=== PATIENT | male | born 1995 | race Hispanic/Latino ===

== ENCOUNTER 2018-04-03 04:49 | Emergency (ER) | payer SELFPAY ==
[2018-04-03] MEDS ORDERED: Sodium Chloride 0.9% 1,000 ML ONE ×2 (05:11→06:05)
[2018-04-03] MEDS ORDERED: Ondansetron HCl/PF 4 MG/2 ML Vial ONE (05:11)
[2018-04-03 05:24] LABS: #Basophils 0.1 thou/uL (0.0-0.2); #Lymphocytes 1.5 thou/uL (1.20-3.40); #Monocytes 1.2 thou/uL (0.11-0.59); #Neutrophils 11.4 thou/uL (1.40-6.50); %Basophils 0.6 % (0.0-1.0); %Eosinophils 0.1 % (0.0-10.0); %Lymphocytes 10.4 % (21.0-51.0); %Monocytes 8.4 % (0.0-10.0); %Neutrophils 80.5 % (42.0-75.0); Hemoglobin 15.3 g/dL (14.0-18.0); Mean Corpuscular HGB CONC 32.8 g/dL (32.0-36.0); Mean Corpuscular Hemoglobin 28.1 pg (27.0-31.0); Mean Corpuscular Volume 85.4 fL (78.0-98.0); Mean Platelet Volume 7.7 fL (7.4-10.4); Platelet Count 280 thou/uL (130-400); Red Blood Cell (RBC) Count 5.44 mill/uL (4.70-6.10); White Blood Cell (WBC) Count 14.2 thou/uL (4.8-10.8)
[2018-04-03 05:27] LABS: MDiff Complete? YES; Manual Diff?? NO
[2018-04-03] MEDS ORDERED: Ketorolac Tromethamine 30 MG/ML VIAL ONE (05:34)
[2018-04-03 05:41] LABS: ALT (SGPT) 31 U/L (8-55); AST (SGOT) 23 U/L (5-34); Albumin 4.5 g/dL (3.5-5.0); Alkaline Phosphatase 92 U/L (40-150); Anion Gap 16 mmol/L (10-20); BUN (Urea Nitrogen) 12 mg/dL (8.9-20.6); Bilirubin, Total 1.1 mg/dL (0.2-1.2); Calc. Creatinine Clearance 0 mL/min (70-130); Calcium 9.7 mg/dL (7.8-10.44); Carbon Dioxide 25 mmol/L (22-29); Chloride 101 mmol/L (98-107); Estimated GFR-MDRD Greater than 90; Globulin 3.4 g/dL (2.4-3.5); Glucose 152 mg/dL (70-105); Lipase 98 U/L (8-78); Potassium 3.5 mmol/L (3.5-5.1); Protein, Total 7.9 g/dL (6.0-8.3); Sodium 138 mmol/L (136-145)
[2018-04-03] MEDS ORDERED: Piperacillin/Tazobactam 3.375 GM VIAL ONE (06:25)
[2018-04-03] MEDS ORDERED: Sodium Chloride 0.9% 100 ML ONE (06:25)
--- NOTE | 2018-04-03 09:01 | CT ---
PRELIMINARY REPORT/[facility]/EMERGENTY AFTER-HOURS PROCEDURE Addendum created by Deshaun Sharma MD on 04/03/2018 6:22 AM Central Time ([place] & [place]) THIS REPORT CONTA INS FINDINGS THAT MAY BE CRITICAL TO PATIENT CARE. The findings were verbally communicated via teleph one conference with STUART WILBURN at 6:22 AM CDT on 04/03/2018. The findings were acknowledged and understood. Initial Report created on 04/03/2018 6:20 AM Central Time ([place] & [place]) CT Abdomen and Pelvis Without Intravenous Contrast CLINICAL HISTORY: 22 years old, male; Pain; Abdominal pain; Flank; Right lower quadrant (rlq); Patient HX: Constipation and vomiting x 2 days. Right flank pain TECHNIQUE: Axial computed tomography images of the abdomen and pelvis without intravenous contrast. All CT scans at this facility use at least one of these dose optimization techniques: automated exposure control; mA and/or kV adjustment per patient size (includes targeted exams where dose is matched to clinical indication); or iterative reconstruction. Coronal and sagittal reformatted images were created and re viewed. COMPARISON: No relevant prior studies available. FINDINGS: Lung bases: There is subpleural atelectasis of the dependent portions of the lungs. ABDOMEN: Liver: The liver is within normal limits for this noncontrast study. Gallbladder and bile ducts: The gallbladder is normal. There is no evidence of biliary ductal dilatio n. No calcified stones. Pancreas: The pancreas appears normal. No ductal dilation. Spleen: The spleen is normal. Adrenals: The adrenal glands are normal. Kidneys and ureters: The kidneys appear normal. No obstructing stones. No hydronephrosis. Stomach and bowel: The stomach is normal. The duodenum is unremarkable. The colon is normal. No obstruction. No mucosal thickening. PELVIS: Appendix: The appendix is dilated up to 15 mm and there is an appendicolith at the appendiceal base a nd marked periappendiceal inflammatory stranding consistent with severe acute appendicitis. Bladder: The bladder is normal. No stones. Reproductive: The prostate gland and seminal vesicles are normal. ABDOMEN and PELVIS: Intraperitoneal space: There is a small amount of free pelvic fluid present. No free air. Bones/joints: No acute fracture. No dislocation. Soft tissues: Normal. Vasculature: Normal. No abdominal aortic aneurysm. Lymph nodes: Normal. No enlarged lymph nodes. IMPRESSION: Severe acute appendicitis. Thank you for allowing us to participate in the care of your patient. Dictated and Authenticated by: Deshaun Sharma MD 04/03/2018 6:20 AM Central Time ([place] & [place]) FINAL REPORT CT STONE PROTOCOL: Date: 04/03/18 FINDINGS/IMPRESSION: I agree with the preliminary report provided by [facility]. Findings are most consistent with acute appendicitis. The appendix is dilated, measuring up to 1.3 cm , with periappendiceal fat stranding. There is a 1.0 cm appendicolith seen within the base of the gretel endix. Additional smaller 3-4 mm appendicolith is seen within the proximal appendix. Two additional a ppendicoliths measuring 2-3 mm a piece are seen within the mid appendix. No definite drainable fluid collection is evident. There is fat stranding within the right lower quadrant mesentery. No definite acute osseous abnormality is evident. IMPRESSION: Findings of appendicitis with appendicolith. POS: [facility]
== END 2018-04-03 07:06 | disposition short-term general hospital (02) ==
LOC: NAV ERS 04:49
DX: K35.80 Unspecified acute appendicitis (principal)
CPT/HCPCS: 36415; 74176; 80053; 83690; 85025; 96361; 96365; 96375; J1885; J2270; J2405; J2543; J7050